=== PATIENT | male | born 1985 | race Caucasian/White ===

== ENCOUNTER 2018-01-16 07:14 | Emergency (ER) | payer OTHER ==
[2018-01-16] MEDS ORDERED: LET GEL TOPICAL 1 EA SYR TP ONE ×2 (07:30→08:01)
[2018-01-16] MEDS ORDERED: IBUPROFEN 600 MG TAB PO ONE (07:30)
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
[2018-01-16 08:53] VITALS: BP 124/69
== END 2018-01-16 08:52 | disposition home or self-care (01) ==
PROC: 0HQDXZZ Repair Right Lower Arm Skin, External Approach (ICD-10-PCS; principal; 2018-01-16)
DX: S51.811A Laceration without foreign body of right forearm, initial encounter (principal); S60.512A Abrasion of left hand, initial encounter; S50.811A Abrasion of right forearm, initial encounter; V18.4XXA Pedal cycle driver injured in noncollision transport accident in traffic accident, initial encounter; Y92.410 Unspecified street and highway as the place of occurrence of the external cause; Y99.8 Other external cause status; Y93.55 Activity, bike riding